=== PATIENT | male | born 1995 | race Caucasian/White ===

== ENCOUNTER 2018-12-17 09:23 | Emergency (ER) | payer SELFPAY ==
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
[2018-12-17 09:37] VITALS: BP 123/74
== END 2018-12-17 09:51 | disposition home or self-care (01) ==
LOC: ED 09:23
DX: S09.90XA Unspecified injury of head, initial encounter (principal); W19.XXXA Unspecified fall, initial encounter; Y99.8 Other external cause status
CPT/HCPCS: 99283; 99284